=== PATIENT | female | born 1970 | race Two or more races ===

== ENCOUNTER → 2024-05-30 | Emergency (ER) | payer SELFPAY ==
[~2024-05-30] VITALS: Ht 177.8 cm; Wt 86.4 kg
[2024-05-30 01:09] VITALS: BP 116/71; PULSE 56; RESP 20; O2SAT 97
[2024-05-30 02:05] LABS: Urine Bacteria None Seen /hpf (None Seen)
[2024-05-30 02:27] LABS: Urine Blood Negative /uL (Negative); Urine Clarity Clear (Clear); Urine Color Light-Yellow (Yellow); Urine Protein, UAD Negative (Negative); Urine Specific Gravity 1.023 (1.001-1.035); Urine Squamous Epithelial Cell FEW /hpf (<5); Urine Urobilinogen Normal (Negative); Urine WBC 1 /hpf (0 - 5)
== END | disposition left against medical advice (07) ==
LOC: ER 01:00
DX: R10.9 Unspecified abdominal pain (principal); R11.10 Vomiting, unspecified; Z53.21 Procedure and treatment not carried out due to patient leaving prior to being seen by health care provider
CPT/HCPCS: 81001